=== PATIENT | male | born 1945 | race Caucasian/White ===

== ENCOUNTER 2016-10-08 11:32 | Inpatient (IN) | payer OTHER, MEDICARE ==
[~2016-10-08] VITALS: Ht 185.4 cm; Wt 137.7 kg
[~2016-10-08 11:32] MED LIST changes: -CARA1TAB6 PO; -CHOL1TAB PO; -DOCU1CAP39 PO; -FISH120014 PO; -FLUTI220I INH; -GLIP5TAB8 PO; -HYDR-3366 PO; -HYDR-3583 PO; -LYRI100C PO; -LYRI150C PO; -METF1000 PO; -METO-309 PO; -METO25TA3 PO; -MULT1TAB84 PO; -MULTTAB63 PO; -OMEP20TA PO; -PROT40TA PO; -SUCR1TAB PO; -TRAZ150T75 PO; -TRAZ50TA12 PO; -UMEC1AER INH; -desyrel PO
[2016-10-08] MEDS ORDERED: MULT1TAB84 PO (14:17)
[2016-10-08] MEDS ORDERED: METO25TA3 PO (14:17)
[2016-10-08] MEDS ORDERED: METF1000 PO (14:17)
[2016-10-08] MEDS ORDERED: FLUTI220I INH (14:17)
[2016-10-08] MEDS ORDERED: GLIP5TAB8 PO (14:17)
[2016-10-08] MEDS ORDERED: CARA1TAB6 PO (14:17)
[2016-10-08] MEDS ORDERED: TRAZ150T75 PO (14:17)
[2016-10-08] MEDS ORDERED: PROT40TA PO (14:17)
[2016-10-08] MEDS ORDERED: LYRI150C PO (14:17)
[2016-10-08] MEDS ORDERED: HYDR-3366 PO (15:54)
[2016-10-16] MEDS ORDERED: SODIUM CHLOR 0.9% 1000 ML INJ 1,000 ML IV SCH (06:30)
[2016-10-16] MEDS ORDERED: SODIUM CHLORID 0.9% 500 ML IV SCH (06:30)
[2016-10-16] MEDS ORDERED: VANCOMYCIN HCL 1000 MG ON-CALL/NS 250 ML IV SCH ×2 (06:30)
[2016-10-16] MEDS ORDERED: INSULIN HUMAN REGULAR 1,000 UNITS/10 ML VIAL SQ PRN (06:30)
[2016-10-16] MEDS ORDERED: METOPROLOL TARTRATE 25 MG TAB PO PRN (06:30)
[2016-10-16] MEDS: LACTATED RINGER'S 1000 ML IV SCH (06:45)
[2016-10-16] MEDS ORDERED: UMEC1AER INH (06:51)
[2016-10-16 06:53] VITALS: BP 146/89; PULSE 70; RESP 22; TEMP 97.5; O2SAT 97
[2016-10-16] MEDS ORDERED: BUPIVACAINE/EPINEPHRINE 0.5% 50 ML VIAL ONE (06:53)
[2016-10-16] MEDS ORDERED: VANCOMYCIN 500 MG VIAL ONE (06:53)
[2016-10-16] MEDS ORDERED: GELFOAM SIZE 100 ONE (06:53)
[2016-10-16] MEDS ORDERED: THROMBIN (TOPICAL) 5,000 UNIT VIAL ONE (06:53)
[2016-10-16] MEDS ORDERED: MIDAZOLAM HCL 2 MG/2 ML VIAL ONE (08:07)
[2016-10-16] MEDS ORDERED: FAMOTIDINE 20 MG/2 ML VIAL ONE (08:07)
[2016-10-16] MEDS ORDERED: ARTIFICIAL TEARS OPTH OINT 3.5 APPLIC/3.5 GM TUBO ONE (08:07)
[2016-10-16] MEDS ORDERED: ACETAMINOPHEN 1000 MG/100 ML VIAL IV ONE (08:07)
[2016-10-16] MEDS ORDERED: KETAMINE HCL 500 MG/5 ML VIAL ONE (08:08)
[2016-10-16] MEDS ORDERED: fentaNYL CITRATE 250 MCG/5 ML AMP ONE ×2 (08:08)
[2016-10-16] MEDS ORDERED: PROPOFOL 200 MG/20 ML AMP IV ONE (12:00)
[2016-10-16] MEDS ORDERED: PHENYLEPH/NS 1000 MCG/10 ML SYR IV ONE (12:00)
[2016-10-16] MEDS ORDERED: SODIUM CHLOR 0.9% 250 ML INJ 250 ML IV ONE (12:00)
[2016-10-16] MEDS ORDERED: SODIUM CHLORID 0.9% 500 ML INJ 500 ML IV ONE (12:00)
[2016-10-16] MEDS ORDERED: PHENYLEPHRINE HCL 10 MG/ML VIAL IV ONE (12:00)
[2016-10-16] MEDS ORDERED: ONDANSETRON HCL 4 MG/2 ML VIAL IV PUSH ONE (12:00)
[2016-10-16] MEDS ORDERED: LACTATED RINGER'S 1000 ML INJ 2,000 ML IV ONE (12:00)
[2016-10-16] MEDS ORDERED: ePHEDrine/NS 50 MG/5 ML SYR IV ONE (12:00)
[2016-10-16] MEDS ORDERED: VANCOMYCIN HCL 1000 MG VIAL OTHER ONE (13:00)
[2016-10-16] MEDS: NS + KCL 20 MEQ INJ 1,000 ML IV SCH (13:35)
--- NOTE | 2016-10-16 13:41 | PD.OP ---
Olvin Teran MD Operative Report Date of Surgery: Oct 16, 2016 Preoperative Diagnosis: Intractable back pain with neurogenic claudication and radiculopathy; T12-L1 and L1-L2 degenerative disc disease with the facet arthropathy and associated spinal stenosis; history of L3-S1 posterolateral fusion with pedicle screw fixation Postoperative Diagnosis: Same Procedure: T12, L1 and L2 posterolateral fusion; T12-L2 decompressive laminotomies with medial facetectomy; T12-L2 pedicle screw fixation; removal of previous L2 pedicle screw; microsurgical technique Anesthesia: Gen. endotracheal by Evette Bowers Surgeon: Diaz Youssef M.D. Rig Welder(s): Emilia Lockhart Operation and Findings: The procedure along with the risks and benefits involved were discussed with the patient including the option of nonsurgical management. He requested that we proceed with surgery and informed consent was obtained. Following initiation of a general endotracheal anesthesia patient a Cruz catheter placed on the sequential compression devices and was log rolled on a Jeffry table on chest rolls in the prone position and all pressure points adequately padded. The posterior thoracic lumbar was then shaved and prepped with alcohol along with ChloraPrep and sterilely draped with Ioban along with the usual sterile draping. Intraoperative fluoroscopy was used for level confirmation an incision in the midline made extending from that T12 to the L2 levels extending superior to the previous midline lumbar incision site after infiltrating the skin with 0.5% Marcaine with epinephrine solution. The incision was extended down through the fascia and then using the subperiosteal plane the muscle attachments spinous processes and lamina along with the facets were detached from the T12 to L2 levels bilaterally. Self-retaining retractor was used for exposure. Further dissection was undertaken using microtechnique with microscope magnification. The left T12, L1, and L2 lamina along with the medial portion of the facet the were resected with a drill bit and Kerrison along with the underlying ligamentum flavum to decompress the spinal canal which was significantly stenosed Epidural venous stasis achieved with bipolar cautery along with Gelfoam and thrombin. Subsequently pedicle screw fixation was undertaken using Boy[place] spine screws with the entry point ejection of the transverse process and facet at the T12 level as well as L1 and L2 levels on the left side. Patient had a previous TSRH pedicle screw system in place extending from L2 to the lumbosacral level. Noted to extend this construct superiorly the L2 pedicle screws had to be removed but was extensive scar tissue and Bone callus formation which made the removal of these pedicle screws very difficult. Consequently I cut the anum between the left L2 and L3 pedicle screw and the left L2 pedicle screw was then removed and replaced with a larger Boynton spine screw. AP and lateral fluoroscopy guidance was used to and subsequently tap and screw placement bilaterally extending from T12 to the L2 levels which were then connected with a anum and locked in place with caps. I then decorticated the posterior lateral remnants of the laminae and facet lumbar transverse processes on the right side extending from T12 to L2 levels with a drill bit for posterolateral fusion. The local autograft bone from the laminectomy along with demineralized bone matrix was then packed overlying the decorticated the posterior lateral elements extending from the T12 to the L2 level. The area was copiously irrigated with vancomycin solution. AP and lateral fluoroscopy confirmed good placement of the construct as well as advent of the spinal alignment. The muscle and fascia was then approximated using 2-0 Vicryl interrupted stitches and 3-0 Vicryl subcuticular interrupted stitches were also placed with final skin closure using coco. Sterile dressings were then applied and he was then log roll supine position and extubated and taken recovery room. There were no intraoperative complications and all sponge and needle count was correct at the end the procedure. Estimated blood loss about 130 cc. Intraoperative neurologic monitoring was also undertaken which remained stable throughout the surgery. Diaz Youssef MD Oct 16, 2016 13:41
[2016-10-16] MEDS ORDERED: CALCIUM GLUCONATE INJ 1 GM in SODIUM CHLORIDE 0.9% INJ 100 ML IV PRN (13:45)
[2016-10-16] MEDS ORDERED: ACETAMINOPHEN 325 MG TAB PO PRN (13:45)
[2016-10-16] MEDS ORDERED: CYCLOBENZAPRINE HCL 10 MG TAB PO PRN (13:45)
[2016-10-16] MEDS ORDERED: ONDANSETRON HCL 4 MG/2 ML VIAL IV PRN (13:45)
[2016-10-16] MEDS ORDERED: ACETAMINOPHEN/HYDROcodone 325 MG/10 MG TAB PO PRN (13:45)
[2016-10-16] MEDS ORDERED: RESP: ALBUTEROL 2.5 MG/3 ML NEB (PRN) NEB (13:45)
[2016-10-16] MEDS ORDERED: BISACODYL 10 MG SUPP PR PRN (13:45)
[2016-10-16] MEDS ORDERED: MAGNESIUM SULFATE INJ 2 GM in SODIUM CHLORIDE 0.9% INJ 100 ML IV PRN (13:45)
[2016-10-16] MEDS ORDERED: ALUMINUM/MAGNESIUM/SIMETH 30 ML CUP PO PRN (13:45)
[2016-10-16] MEDS ORDERED: PROMETHAZINE INJ 25 MG/ML VIAL IM PRN (13:45)
[2016-10-16] MEDS ORDERED: NALOXONE HCL 0.4 MG/ML AMP IV PRN (13:45)
[2016-10-16] MEDS ORDERED: DEXTROSE 50% IN WATER 50 ML VIAL(D50) IV PUSH PRN (13:45)
[2016-10-16] MEDS ORDERED: SODIUM CHLORIDE 0.9% FLUSH 5 ML FLUSH IVF PRN (13:45)
[2016-10-16] MEDS ORDERED: GLUCAGON 1 MG/ML VIAL OTHER PRN (13:45)
[2016-10-16] MEDS ORDERED: ZOLPIDEM TARTRATE 5 MG TAB PO PRN (13:45)
[2016-10-16] MEDS ORDERED: MENTHOL LOZENGE SUCK-ON PRN (13:45)
[2016-10-16] MEDS ORDERED: POTASSIUM CHLOR 20 MEQ PREMIX 100 ML IV PRN (13:45)
[2016-10-16] MEDS ORDERED: cloNIDine HCL 0.1 MG TAB PO PRN (13:45)
[2016-10-16] MEDS: PCA - TOTAL MG DILAUDID DELIVERED PER SHIFT OTHER SCH ×2 (14:00→21:10)
[2016-10-16 14:19] LABS: AUTOMATED NEUTROPHIL # 6.5 TH/MM3 (1.8-7.7); BASOPHIL % 0.6 % (0.0-2.0); EOSINOPHIL # 0.1 TH/MM3 (0-0.4); EOSINOPHIL % 1.2 % (0.0-4.0); HEMATOCRIT 36.6 % (39.0-51.0); HEMO FLAGS DIFF FINAL; LYMPH % 14.8 % (9.0-44.0); LYMPHOCYTE # 1.3 TH/MM3 (1.0-4.8); MEAN CELL VOLUME 92.1 FL (80.0-100.0); MEAN CORPUSCULAR HEMOGLOBIN 31.4 PG (27.0-34.0); MEAN CORPUSCULAR HGB CONC 34.1 % (32.0-36.0); MONO % 8.8 % (0.0-8.0); NEUT % 74.6 % (16.0-70.0); PLATELET COUNT 161 TH/MM3 (150-450); RED BLOOD COUNT 3.98 MIL/MM3 (4.50-5.90); RED CELL DISTRIBUTION WIDTH 13.4 % (11.6-17.2); WHITE BLOOD COUNT 8.7 TH/MM3 (4.0-11.0)
[2016-10-16] MEDS ORDERED: DO NOT ADM ANY ANTICOAGULANT DRUGS XX PRN (14:30)
[2016-10-16 14:44] LABS: BICARBONATE 25.7 MEQ/L (21.0-32.0); MAGNESIUM 1.5 MG/DL (1.5-2.5); POTASSIUM 3.7 MEQ/L (3.5-5.1)
--- NOTE | 2016-10-16 14:44 | PD.CONS ---
HPI Service [facility] Consult Requested By Neurosurgery Reason for Consult Medical management Primary Care Physician Olvin Teran MD Diagnoses: History of Present Illness 71-year-old male with a history of diabetes type 2, chronic back pain with had previous back fusion surgery was taken to the OR today and underwent a T12, L1, L2 laminectomies with pedicle screw fixation and posterolateral fusion. Patient was seen in PACU, denies any chest pain or shortness of breath. Vitals stable Review of Systems Other Other 12 systems reviewed and are negative except for the one mentioned in history of present illness Past Family Social History Allergies: Coded Allergies: Tramadol (Verified Allergy, Severe, ITCH AND PANIC ATTACKS, 10/16/16) Morphine (Verified Allergy, Mild, itching, 10/16/16) Past Medical History Chronic back pain Diabetes type 2 Hypertension Hyperlipidemia Fibromyalgia Past Surgical History Previous back fusion surgery s/p T12, L1, L2 laminectomies with pedicle screw fixation and posterolateral fusion 10/16/16 Family History Noncontributory Social History No report of tobacco, alcohol or illicit drug intake Physical Exam Vital Signs Vital Signs Date Time Temp Pulse Resp B/P Pulse Ox O2 Delivery O2 Flow Rate FiO2 10/16/16 06:53 97.5 70 22 146/89 97 Physical Exam GENERAL: This is a well-nourished, well-developed patient, in no apparent distress. SKIN: No rashes, ecchymoses or lesions. Cool and dry. HEAD: Atraumatic. Normocephalic. No temporal or scalp tenderness. EYES: Pupils equal round and reactive. Extraocular motions intact. No scleral icterus. No injection or drainage. ENT: Nose without bleeding, purulent drainage or septal hematoma. Throat without erythema, tonsillar hypertrophy or exudate. Uvula midline. Airway patent. NECK: Trachea midline. No JVD or lymphadenopathy. Supple, nontender, no meningeal signs. CARDIOVASCULAR: Regular rate and rhythm without murmurs, gallops, or rubs. RESPIRATORY: Clear to auscultation. Breath sounds equal bilaterally. No wheezes , rales, or rhonchi. GASTROINTESTINAL: Abdomen soft, non-tender, nondistended. No hepato-splenomegaly , or palpable masses. No guarding. MUSCULOSKELETAL: Extremities without clubbing, cyanosis, or edema. No joint tenderness, effusion, or edema noted. No calf tenderness. Negative Homans sign bilaterally. NEUROLOGICAL: Awake and alert. Cranial nerves II through XII intact. Motor and sensory grossly within normal limits. Five out of 5 muscle strength in all muscle groups. Normal speech. Laboratory Laboratory Tests Test 10/16/16 10/16/16 06:40 14:10 Blood Type A POSITIVE Antibody Screen NEGATIVE Blood Bank Comment White Blood Count 8.7 Red Blood Count 3.98 Hemoglobin 12.5 Hematocrit 36.6 Mean Corpuscular Volume 92.1 Mean Corpuscular Hemoglobin 31.4 Mean Corpuscular Hemoglobin 34.1 Concent Red Cell Distribution Width 13.4 Platelet Count 161 Mean Platelet Volume 9.4 Neutrophils (%) (Auto) 74.6 Lymphocytes (%) (Auto) 14.8 Monocytes (%) (Auto) 8.8 Eosinophils (%) (Auto) 1.2 Basophils (%) (Auto) 0.6 Neutrophils # (Auto) 6.5 Lymphocytes # (Auto) 1.3 Monocytes # (Auto) 0.8 Eosinophils # (Auto) 0.1 Basophils # (Auto) 0.0 CBC Comment DIFF FINAL Differential Comment Result Diagram: 10/16/16 1410 Assessment and Plan Assessment and Plan 71-year-old male with s/p T12, L1, L2 laminectomies with pedicle screw fixation and posterolateral fusion 10/16/16: Management per neurosurgery. Continue current postop care. PT consult to treat and eval. Pain management accordingly. Monitor for postop anemia. Diabetes type 2: Resume outpatient medication, start insulin sliding scale with fingerstick blood glucose monitoring. Hypertension: Resume outpatient medications including Cozaar, Lopressor and Norvasc. Hyperlipidemia: Resume statin GERD: Resume PPI Other chronic medical conditions: Resume outpatient medications DVT prophylaxis: Bilateral SCDs Code Status Full code Discussed Condition With Patient, PACU nurse Graham Moreno MD Oct 16, 2016 14:44
--- NOTE | 2016-10-16 14:48 | RADRPT ---
EXAM DATE/TIME: 10/16/2016 09:01 [facility] COMPARISON: CT LUMBAR SPINE W/O CONTRAST, July 22, 2016, 8:54. CT THORACIC SPINE W/O CONTRAST, July 22 16, 8:58. INDICATIONS : T12-L2 Laminectomy, T12-L2 fusion. MEDICAL HISTORY : Hypertension. Chronic obstructive pulmonary disease. Diabetes mellitus type II. CAD, GERD, [place]. SURGICAL HISTORY : Fusion, lumbar. ENCOUNTER: Initial ACUITY: 1 day PAIN SCORE: Non-responsive. LOCATION: Thoracolumbar spine FINDINGS: AP and lateral cone-down views of the thoracolumbar junction were obtained using a matrix camera and demonstrate a remote fusion at the L2-S1 level with bilateral pedicle screws and posterior fixation r ods. The patient is status post interval fusion at the T12-L2 level with left-sided pedicle screws an d posterior fixation anum. Degenerative disc changes are present at the L1-2 level with disc space galina rowing and hypertrophic change. CONCLUSION: 1. Status post interval fusion at the T12-L2 level. 2. Remote fusion in the upper and lower lumbar spine. Rui Gilbert MD on October 16, 2016 at 14:41 Board Certified Radiologist. This report was verified electronically.
[2016-10-16] MEDS: HYDROmorphone HCL PCA 6 MG/30 ML IV SCH ×2 (15:39→21:32)
[2016-10-16 16:00] VITALS: BP 133/69; PULSE 91; RESP 18; TEMP 95.4; O2SAT 94
[2016-10-16] MEDS: INSULIN NovoLIN REGULAR SUPPLEMENTAL SCALE SQ SCH ×2 (16:00→21:00)
[2016-10-16 17:05] VITALS: O2SAT 99
[2016-10-16 20:00] VITALS: BP 127/70; PULSE 96; RESP 16; TEMP 96.4; O2SAT 94
[2016-10-16] MEDS: diphenhydrAMINE HCL 25 MG CAP PO PRN (21:05)
[2016-10-16] MEDS: DOCUSATE SODIUM 100 MG CAP PO SCH (21:06)
[2016-10-16] MEDS: traZODone HCL 50 MG TAB PO SCH (21:06)
[2016-10-16] MEDS: SODIUM CHLORIDE 0.9% FLUSH 5 ML FLUSH IVF SCH (21:07)
[2016-10-16] MEDS: TOPIRAMATE 25 MG TAB PO SCH (21:07)
[2016-10-17] VITALS (7 sets, daily range): BP systolic 108–141; BP diastolic 58–82; PULSE 79–105; RESP 16–18; TEMP 95.8–97.6; O2SAT 93–96
[2016-10-17] MEDS: HYDROmorphone HCL PCA 6 MG/30 ML IV SCH ×2 (03:11→13:40)
[2016-10-17 05:51] LABS: AUTOMATED NEUTROPHIL # 10.6 TH/MM3 (1.8-7.7); BASOPHIL % 0.1 % (0.0-2.0); HEMATOCRIT 38.9 % (39.0-51.0); HEMO FLAGS DIFF FINAL; LYMPH % 5.3 % (9.0-44.0); LYMPHOCYTE # 0.7 TH/MM3 (1.0-4.8); MEAN CELL VOLUME 94.1 FL (80.0-100.0); MEAN CORPUSCULAR HEMOGLOBIN 31.2 PG (27.0-34.0); MEAN CORPUSCULAR HGB CONC 33.1 % (32.0-36.0); NEUT % 85.6 % (16.0-70.0); PLATELET COUNT 189 TH/MM3 (150-450); RED BLOOD COUNT 4.14 MIL/MM3 (4.50-5.90); RED CELL DISTRIBUTION WIDTH 13.2 % (11.6-17.2); WHITE BLOOD COUNT 12.4 TH/MM3 (4.0-11.0)
[2016-10-17 05:59] LABS: BICARBONATE 26.5 MEQ/L (21.0-32.0); POTASSIUM 4.2 MEQ/L (3.5-5.1)
[2016-10-17] MEDS: PCA - TOTAL MG DILAUDID DELIVERED PER SHIFT OTHER SCH ×3 (06:00→22:00)
[2016-10-17] MEDS: LACTATED RINGER'S 1000 ML IV SCH (06:30)
[2016-10-17] MEDS: NS + KCL 20 MEQ INJ 1,000 ML IV SCH (06:40)
[2016-10-17] MEDS: INSULIN NovoLIN REGULAR SUPPLEMENTAL SCALE SQ SCH ×4 (06:42→20:40)
[2016-10-17] MEDS: UMECLIDINIUM 62.5 MCG/VILANTEROL 25 MCG INHALER INH SCH (08:56)
[2016-10-17] MEDS: SODIUM CHLORIDE 0.9% FLUSH 5 ML FLUSH IVF SCH ×2 (08:56→20:39)
[2016-10-17] MEDS: MAGNESIUM HYDROXIDE SUSP 30 ML CUP PO PRN (08:57)
[2016-10-17] MEDS: PANTOPRAZOLE SOD 40 MG DELAYED RELEASE TAB PO SCH (08:57)
[2016-10-17] MEDS: PREGABALIN 75 MG CAP PO SCH (08:57)
[2016-10-17] MEDS: MULTIVITAMINS/MINERALS THERAPEUTIC TAB PO SCH (08:59)
[2016-10-17] MEDS: DOCUSATE SODIUM 100 MG CAP PO SCH ×2 (08:59→20:40)
[2016-10-17] MEDS: METOPROLOL TARTRATE 25 MG TAB PO SCH (09:00)
[2016-10-17] MEDS: TOPIRAMATE 25 MG TAB PO SCH ×2 (09:00→20:40)
[2016-10-17] MEDS: LOSARTAN 50 MG TAB PO SCH (09:00)
[2016-10-17] MEDS: amLODIPine BESYLATE 5 MG TAB PO SCH (09:00)
[2016-10-17] MEDS: PRAMIPEXOLE DIHYDROCHLORIDE 0.25 MG TAB PO SCH (09:01)
[2016-10-17] MEDS: PRAVASTATIN SOD 40 MG TAB PO SCH (09:01)
--- NOTE | 2016-10-17 10:24 | HHI.PR ---
Subjective Remarks Patient seen and examined Reports improvement of back pain Denies any chest pain or shortness of breath Currently afebrile Objective Vitals Vital Signs Date Time Temp Pulse Resp B/P Pulse Ox O2 Delivery O2 Flow Rate FiO2 10/17/16 08:52 Room Air 10/17/16 08:00 95.8 105 18 128/72 96 10/17/16 06:00 18 10/17/16 04:00 96.4 96 16 141/76 96 10/17/16 03:11 18 10/17/16 00:00 96.4 103 17 139/82 94 10/16/16 21:32 18 10/16/16 21:10 18 10/16/16 20:00 96.4 96 16 127/70 94 10/16/16 17:05 99 21 10/16/16 16:00 95.4 91 18 133/69 94 10/16/16 15:39 12 10/16/16 15:31 Nasal Cannula 3.00 10/16/16 15:15 98.1 96 12 125/66 97 Nasal Cannula 3 10/16/16 15:00 91 12 136/76 95 Nasal Cannula 3 10/16/16 14:45 92 12 143/75 97 Nasal Cannula 3 10/16/16 14:30 93 12 145/75 96 Nasal Cannula 3 10/16/16 14:15 98 12 125/74 97 Nasal Cannula 4 10/16/16 14:00 101 12 123/66 95 Nasal Cannula 4 10/16/16 13:52 98.1 96 12 124/66 92 Nasal Cannula 4 I/O 10/16/16 10/16/16 10/16/16 10/17/16 10/17/16 10/17/16 07:00 15:00 23:00 07:00 15:00 23:00 Intake Total 2560 ml 480 ml 360 ml Output Total 730 ml 1200 ml 650 ml Balance 1830 ml -720 ml -290 ml Intake Oral 60 ml 480 ml 360 ml Other 2500 ml Output Urine Total 600 ml 1200 ml 650 ml Estimated Blood Loss 130 ml # Bowel Movements 0 0 0 Result Diagram: 10/17/16 0441 10/17/16 0441 Imaging Last Impressions Thoracolumbar Spine 10/16/16 0000 Signed Impressions: Service Date/Time: September 09:01 - CONCLUSION: 1. Status post interval fusion at the T12-L2 level. 2. Remote fusion in the upper and lower lumbar spine. Rui Gilbert MD Objective Remarks GENERAL: NAD SKIN: Warm and dry. HEAD: Normocephalic. EYES: No scleral icterus. No injection or drainage. NECK: Supple, trachea midline. No JVD or lymphadenopathy. CARDIOVASCULAR: Regular rate and rhythm without murmurs, gallops, or rubs. RESPIRATORY: Breath sounds equal bilaterally. No accessory muscle use. GASTROINTESTINAL: Abdomen soft, non-tender, nondistended. MUSCULOSKELETAL: No cyanosis, or edema. BACK: Nontender without obvious deformity. Inc c/d/i A/P Assessment and Plan 71-year-old male with s/p T12, L1, L2 laminectomies with pedicle screw fixation and posterolateral fusion 10/16/16: Management per neurosurgery. Continue current postop care. PT to treat and eval. Pain management accordingly. Incentive spirometry at bedside Monitor for postop anemia. Diabetes type 2: Continue outpatient medication, on insulin sliding scale with fingerstick blood glucose monitoring. Hypertension: continue outpatient medications including Cozaar, Lopressor and Norvasc. Hyperlipidemia: on statin GERD: continue PPI Other chronic medical conditions: continue outpatient medications Leukocytosis: Stress reactive, continue to monitor DVT prophylaxis: Bilateral SCDs Graham Moreno MD Oct 17, 2016 10:24
--- NOTE | 2016-10-17 12:11 | HHI.NSPN ---
(Graham Pikcett) History Chief Complaint: Incisional pain (Graham Pickett) Interval History Pt underwent a T12, L1, and L2 posterolateral fusion, T12-L2 decompressive laminotomies with medical facetectomy; T12-L2 pedicle screw fixation; removal of previous L2 pedicle screw on 10/16/16. He is sitting up in a chair with TLSO brace on. He states his pain is controlled. He denies any radiculopathy in LEs. He has paresthesias in the toes bilaterally. He is using his CLIENT CARE SPECIALIST for pain control. (Graham Pickett) Review of Systems General: Negative for: fever, chills, insomnia Respiratory: Negative for: shortness of breath, cough, sputum Cardiovascular: Negative for: chest pain Gastrointestinal: Negative for: nausea, vomitting, diarrhea, constipation ( Graham Pickett) Exam Results Vital Signs Date Time Temp Pulse Resp B/P Pulse Ox O2 Delivery O2 Flow Rate FiO2 10/17/16 10:00 93 21 10/17/16 08:52 Room Air 10/17/16 08:00 95.8 105 18 128/72 10/16/16 15:31 3.00 Intake and Output 10/16/16 10/16/16 10/17/16 08:00 16:00 00:00 Intake Total 2560 ml 480 ml Output Total 730 ml 1200 ml Balance 1830 ml -720 ml (Graham Pickett) Physical Examination Resp: CTA bilaterally Heart: NSR no murmurs Abd: Soft positive bs Skin: No cyanosis or erythema in LEs Muscle: Moves LEs with good strength Neuro: Pt awake and alert. Follows commands well. Speech clear and appropriate. (Graham Pickett) Lab, Micro, Other Results Laboratory Tests Test 10/16/16 10/17/16 14:10 04:41 White Blood Count 8.7 TH/MM3 12.4 TH/MM3 Red Blood Count 3.98 MIL/MM3 4.14 MIL/MM3 Hemoglobin 12.5 GM/DL 12.9 GM/DL Hematocrit 36.6 % 38.9 % Mean Corpuscular Volume 92.1 FL 94.1 FL Mean Corpuscular Hemoglobin 31.4 PG 31.2 PG Mean Corpuscular Hemoglobin 34.1 % 33.1 % Concent Red Cell Distribution Width 13.4 % 13.2 % Platelet Count 161 TH/MM3 189 TH/MM3 Mean Platelet Volume 9.4 FL 10.1 FL Neutrophils (%) (Auto) 74.6 % 85.6 % Lymphocytes (%) (Auto) 14.8 % 5.3 % Monocytes (%) (Auto) 8.8 % 9.0 % Eosinophils (%) (Auto) 1.2 % 0.0 % Basophils (%) (Auto) 0.6 % 0.1 % Neutrophils # (Auto) 6.5 TH/MM3 10.6 TH/MM3 Lymphocytes # (Auto) 1.3 TH/MM3 0.7 TH/MM3 Monocytes # (Auto) 0.8 TH/MM3 1.1 TH/MM3 Eosinophils # (Auto) 0.1 TH/MM3 0.0 TH/MM3 Basophils # (Auto) 0.0 TH/MM3 0.0 TH/MM3 CBC Comment DIFF FINAL DIFF FINAL Differential Comment Sodium Level 143 MEQ/L 140 MEQ/L Potassium Level 3.7 MEQ/L 4.2 MEQ/L Chloride Level 109 MEQ/L 106 MEQ/L Carbon Dioxide Level 25.7 MEQ/L 26.5 MEQ/L Anion Gap 8 MEQ/L 8 MEQ/L Blood Urea Nitrogen 21 MG/DL 16 MG/DL Creatinine 0.93 MG/DL 0.94 MG/DL Estimat Glomerular Filtration 80 ML/MIN 79 ML/MIN Rate Random Glucose 103 MG/DL 155 MG/DL Calcium Level 8.3 MG/DL 8.5 MG/DL Magnesium Level 1.5 MG/DL 10/16/16 10/16/16 10/17/16 15:00 23:00 07:00 Intake Total 2560 ml 480 ml 360 ml Output Total 730 ml 1200 ml 650 ml Balance 1830 ml -720 ml -290 ml Intake Oral 60 ml 480 ml 360 ml Other 2500 ml Output Urine Total 600 ml 1200 ml 650 ml Estimated Blood Loss 130 ml # Bowel Movements 0 0 0 (Graham Pickett) Medical Decision Making Impression and Plan A: 71 y/o M s/p T12, L1, and L2 posterolateral fusion, T12-L2 decompressive laminotomies with medical facetectomy; T12-L2 pedicle screw fixation; removal of previous L2 pedicle screw. P: Continue to monitor Continue with pain control Continue with rehab efforts. (Graham Pickett) Attending Statement The exam, history, and the medical decision-making described in the above note were completed with the assistance of the mid-level provider. I reviewed and agree with the findings presented. I attest that I had a [id number] encounter with the patient on the same day, and personally performed and documented my assessment and findings in the medical record. Overall relates that his lower extremity symptoms and weakness has improved. Back pain controlled with CLIENT CARE SPECIALIST. We'll continue with CLIENT CARE SPECIALIST for another day and plan on intermediate home placement on Thursday. Discussed with the who is in agreement. (Diaz Youssef MD) Graham Pickett Oct 17, 2016 12:11 Diaz Youssef MD Oct 17, 2016 15:20
[2016-10-17] MEDS: diphenhydrAMINE HCL 25 MG CAP PO PRN (12:59)
[2016-10-17] MEDS: ACETAMINOPHEN/HYDROcodone 325 MG/10 MG TAB PO PRN (16:39)
[2016-10-17] MEDS: traZODone HCL 50 MG TAB PO SCH (20:40)
[2016-10-18] VITALS: BP 135/59; PULSE 108; RESP 24; TEMP 97.6; O2SAT 97
[2016-10-18 04:00] VITALS: BP 120/56; PULSE 98; RESP 20; TEMP 97.7; O2SAT 93
[2016-10-18] MEDS: PCA - TOTAL MG DILAUDID DELIVERED PER SHIFT OTHER SCH (06:00)
[2016-10-18] MEDS: LACTATED RINGER'S 1000 ML IV SCH (06:30)
[2016-10-18] MEDS: INSULIN NovoLIN REGULAR SUPPLEMENTAL SCALE SQ SCH ×4 (06:35→21:28)
[2016-10-18 08:00] VITALS: BP 133/61; PULSE 108; RESP 20; TEMP 98.2; O2SAT 97
--- NOTE | 2016-10-18 08:03 | HHI.PR ---
Subjective Remarks Patient seen and examined Stable and no acute event overnight States pain is controlled right now Afebrile Objective Vitals Vital Signs Date Time Temp Pulse Resp B/P Pulse Ox O2 Delivery O2 Flow Rate FiO2 10/18/16 06:00 20 10/18/16 04:00 97.7 98 20 120/56 93 10/18/16 00:00 97.6 108 24 135/59 97 10/17/16 22:00 18 10/17/16 20:20 95 Room Air 10/17/16 19:40 97.6 87 18 120/58 95 10/17/16 16:00 96.5 89 18 112/67 93 10/17/16 14:00 18 10/17/16 13:40 18 10/17/16 12:00 96.4 79 18 108/69 96 10/17/16 10:00 93 21 10/17/16 08:52 Room Air I/O 10/17/16 10/17/16 10/17/16 10/18/16 10/18/16 10/18/16 07:00 15:00 23:00 07:00 15:00 23:00 Intake Total 360 ml 1230 ml 468 ml 351 ml Output Total 650 ml 150 ml Balance -290 ml 1230 ml 318 ml 351 ml Intake Oral 360 ml 1230 ml 240 ml 240 ml IV Total 228 ml 111 ml Output Urine Total 650 ml 150 ml # Voids 2 3 # Bowel Movements 0 0 0 0 Result Diagram: 10/17/1644010/17/16440 Objective Remarks GENERAL: NAD and sleeping in a recliner chair SKIN: Warm and dry. HEAD: Normocephalic. EYES: No scleral icterus. No injection or drainage. NECK: Supple, trachea midline. No JVD or lymphadenopathy. CARDIOVASCULAR: Regular rate and rhythm without murmurs, gallops, or rubs. RESPIRATORY: Breath sounds equal bilaterally. No accessory muscle use. GASTROINTESTINAL: Abdomen soft, non-tender, nondistended. MUSCULOSKELETAL: No cyanosis, or edema. BACK: Nontender without obvious deformity. Inc c/d/i A/P Assessment and Plan 71-year-old male with s/p T12, L1, L2 laminectomies with pedicle screw fixation and posterolateral fusion 10/16/16: Management per neurosurgery. Continue current care. PT to treat and eval. Pain management accordingly. Incentive spirometry at bedside Monitor for postop anemia. Diabetes type 2: Continue outpatient medication, on insulin sliding scale with fingerstick blood glucose monitoring. Hypertension: continue outpatient medications including Cozaar, Lopressor and Norvasc. Hyperlipidemia: on statin GERD: continue PPI Other chronic medical conditions: continue outpatient medications Leukocytosis: Stress reactive, continue to monitor DVT prophylaxis: Bilateral SCDs Graham Moreno MD Oct 18, 2016 08:03
[2016-10-18] MEDS: UMECLIDINIUM 62.5 MCG/VILANTEROL 25 MCG INHALER INH SCH (09:00)
[2016-10-18] MEDS: PREGABALIN 75 MG CAP PO SCH (10:05)
[2016-10-18] MEDS: MULTIVITAMINS/MINERALS THERAPEUTIC TAB PO SCH (10:06)
[2016-10-18] MEDS: PRAMIPEXOLE DIHYDROCHLORIDE 0.25 MG TAB PO SCH (10:06)
[2016-10-18] MEDS: PANTOPRAZOLE SOD 40 MG DELAYED RELEASE TAB PO SCH (10:06)
[2016-10-18] MEDS: DOCUSATE SODIUM 100 MG CAP PO SCH ×2 (10:06→21:18)
[2016-10-18] MEDS: ENOXAPARIN SODIUM 30 MG/0.3 ML SYRINGE SQ SCH ×2 (10:06→21:19)
[2016-10-18] MEDS: TOPIRAMATE 25 MG TAB PO SCH ×2 (10:06→21:18)
[2016-10-18] MEDS: METOPROLOL TARTRATE 25 MG TAB PO SCH (10:06)
[2016-10-18] MEDS: PRAVASTATIN SOD 40 MG TAB PO SCH (10:06)
[2016-10-18] MEDS: LOSARTAN 50 MG TAB PO SCH (10:06)
[2016-10-18] MEDS: SODIUM CHLORIDE 0.9% FLUSH 5 ML FLUSH IVF SCH ×2 (10:07→21:18)
[2016-10-18] MEDS: amLODIPine BESYLATE 5 MG TAB PO SCH (10:07)
[2016-10-18] MEDS: ACETAMINOPHEN/HYDROcodone 325 MG/10 MG TAB PO PRN ×3 (10:13→21:18)
[2016-10-18 12:00] VITALS: BP 113/55; PULSE 88; RESP 18; TEMP 97.6; O2SAT 97
--- NOTE | 2016-10-18 12:15 | HHI.NSPN ---
History Chief Complaint: none Interval History POD 2 after T12 to L2 fusion, alert and sitting in the chair. His brace was readjusted. He seems comfortable Review of Systems General: Negative for: fever, chills, insomnia Respiratory: Negative for: shortness of breath, cough, sputum Cardiovascular: Negative for: chest pain, palpitations, orthopnea Exam Results Vital Signs Date Time Temp Pulse Resp B/P Pulse Ox O2 Delivery O2 Flow Rate FiO2 10/18/16 08:00 98.2 108 20 133/61 97 10/17/16 20:20 Room Air 10/17/16 10:00 21 10/16/16 15:31 3.00 Intake and Output 10/17/16 10/17/16 10/18/16 08:00 16:00 00:00 Intake Total 360 ml 1230 ml 468 ml Output Total 650 ml 150 ml Balance -290 ml 1230 ml 318 ml Physical Examination Resp: CTA bilaterally Heart: NSR no murmurs Abd: Soft positive bs Skin: No cyanosis or erythema in LEs Muscle: Moves LEs with good strength bilaterally Neuro: Pt awake and alert. Follows commands well. Speech clear and appropriate. Wound clean and dressed, dry Medical Decision Making Impression and Plan Stable after lumbar fusion, pain is managed, bowel program discussed, ready for rehab. Total Minutes: 10 Spenser Petit Oct 18, 2016 12:15
[2016-10-18 16:00] VITALS: BP 118/77; PULSE 72; RESP 16; TEMP 97.4; O2SAT 94
[2016-10-18] MEDS: MAGNESIUM HYDROXIDE SUSP 30 ML CUP PO PRN (16:41)
[2016-10-18] MEDS: POLYETHYLENE GLYCOL 17 GM PKG PO PRN (16:41)
[2016-10-18 20:00] VITALS: BP 130/63; PULSE 104; RESP 18; TEMP 98.8; O2SAT 97
[2016-10-18] MEDS: traZODone HCL 50 MG TAB PO SCH (21:18)
[2016-10-19] VITALS: BP 124/62; PULSE 78; RESP 18; TEMP 99.6; O2SAT 93
[2016-10-19 04:00] VITALS: BP 135/64; PULSE 109; RESP 20; TEMP 98.8; O2SAT 94
[2016-10-19] MEDS: ACETAMINOPHEN/HYDROcodone 325 MG/10 MG TAB PO PRN ×3 (05:51→16:42)
[2016-10-19] MEDS: INSULIN NovoLIN REGULAR SUPPLEMENTAL SCALE SQ SCH ×3 (05:59→16:42)
[2016-10-19 08:00] VITALS: BP 145/66; PULSE 97; RESP 18; TEMP 98.2; O2SAT 98
[2016-10-19] MEDS: DOCUSATE SODIUM 100 MG CAP PO SCH (08:32)
[2016-10-19] MEDS: PANTOPRAZOLE SOD 40 MG DELAYED RELEASE TAB PO SCH (08:32)
[2016-10-19] MEDS: PRAMIPEXOLE DIHYDROCHLORIDE 0.25 MG TAB PO SCH (08:32)
[2016-10-19] MEDS: PREGABALIN 75 MG CAP PO SCH (08:32)
[2016-10-19] MEDS: MULTIVITAMINS/MINERALS THERAPEUTIC TAB PO SCH (08:32)
[2016-10-19] MEDS: amLODIPine BESYLATE 5 MG TAB PO SCH (08:33)
[2016-10-19] MEDS: METOPROLOL TARTRATE 25 MG TAB PO SCH (08:33)
[2016-10-19] MEDS: PRAVASTATIN SOD 40 MG TAB PO SCH (08:33)
[2016-10-19] MEDS: LOSARTAN 50 MG TAB PO SCH (08:33)
[2016-10-19] MEDS: TOPIRAMATE 25 MG TAB PO SCH (08:33)
[2016-10-19] MEDS: SODIUM CHLORIDE 0.9% FLUSH 5 ML FLUSH IVF SCH (08:37)
[2016-10-19] MEDS: UMECLIDINIUM 62.5 MCG/VILANTEROL 25 MCG INHALER INH SCH (08:37)
[2016-10-19] MEDS: ENOXAPARIN SODIUM 30 MG/0.3 ML SYRINGE SQ SCH (10:58)
--- NOTE | 2016-10-19 10:58 | HHI.PR ---
Subjective Remarks Patient seen and examined Back pain currently controlled Complains of pain which is mostly localized to his nose area Objective Vitals Vital Signs Date Time Temp Pulse Resp B/P Pulse Ox O2 Delivery O2 Flow Rate FiO2 10/19/16 04:00 98.8 109 20 135/64 94 10/19/16 00:00 99.6 78 18 124/62 93 10/18/16 20:00 98.8 104 18 130/63 97 10/18/16 16:00 97.4 72 16 118/77 94 10/18/16 12:00 97.6 88 18 113/55 97 I/O 10/18/16 10/18/16 10/18/16 10/19/16 10/19/16 10/19/16 07:00 15:00 23:00 07:00 15:00 23:00 Intake Total 351 ml 240 ml 240 ml Output Total 25 ml Balance 351 ml 215 ml 240 ml Intake Oral 240 ml 240 ml 240 ml IV Total 111 ml Output Urine Total 25 ml # Voids 3 2 2 2 # Bowel Movements 0 1 0 0 Result Diagram: 10/17/1644010/17/16 0441 Objective Remarks GENERAL: NAD and sleeping in a recliner chair SKIN: Warm and dry. HEAD: Normocephalic. EYES: No scleral icterus. No injection or drainage. NECK: Supple, trachea midline. No JVD or lymphadenopathy. CARDIOVASCULAR: Regular rate and rhythm without murmurs, gallops, or rubs. RESPIRATORY: Breath sounds equal bilaterally. No accessory muscle use. GASTROINTESTINAL: Abdomen soft, non-tender, nondistended. MUSCULOSKELETAL: No cyanosis, or edema. BACK: Nontender without obvious deformity. Inc c/d/i A/P Assessment and Plan 71-year-old male with s/p T12, L1, L2 laminectomies with pedicle screw fixation and posterolateral fusion 10/16/16: Management per neurosurgery. Continue current care. PT to treat and eval. Pain management accordingly. Incentive spirometry at bedside .continue back brace Diabetes type 2: Continue outpatient medication, on insulin sliding scale with fingerstick blood glucose monitoring. Hypertension: continue outpatient medications including Cozaar, Lopressor and Norvasc. Hyperlipidemia: on statin GERD: continue PPI Pruritus: Okay of calamine lotion Other chronic medical conditions: continue outpatient medications Leukocytosis: Stress reactive, continue to monitor DVT prophylaxis: Bilateral SCDs Pontey,Graham MD Oct 19, 2016 10:58
[2016-10-19] MEDS ORDERED: CALAMINE LOTION 180 APPLIC/180 ML BTL TOPICAL PRN (11:00)
[2016-10-19] MEDS ORDERED: DOCU1CAP39 PO (11:02)
[2016-10-19] MEDS ORDERED: HYDR-3583 PO (11:02)
[2016-10-19] MEDS ORDERED: TRAZ50TA12 PO (11:02)
[2016-10-19] MEDS: MAGNESIUM HYDROXIDE SUSP 30 ML CUP PO PRN (11:09)
[2016-10-19] MEDS: POLYETHYLENE GLYCOL 17 GM PKG PO PRN (11:09)
[2016-10-19 12:00] VITALS: BP 121/62; PULSE 89; RESP 18; TEMP 98.1; O2SAT 99
[2016-10-19] MEDS ORDERED: SOD PHOSPHATE/SOD BIPHOSPHATE (ADULT) ENEMA 133ML PR ONE (12:15)
[2016-11-27] MEDS ORDERED: LYRI150C PO (15:51)
--- NOTE | 2016-12-05 12:53 | HHI.DS ---
Discharge Summary Admission Date Oct 16, 2016 at 05:56 Discharge Date: Oct 19, 2016 Admitting Diagnosis (1) Low back pain Diagnosis: Principal ICD Code: M54.5 (2) Postlaminectomy syndrome, lumbar Diagnosis: Principal ICD Code: M96.1 (3) Degenerative disc disease, lumbar Diagnosis: Principal ICD Code: M51.36 (4) Facet arthropathy, lumbar Diagnosis: Principal ICD Code: M12.88 (5) Lumbar stenosis with neurogenic claudication Diagnosis: Principal ICD Code: M48.06 (6) Degenerative disc disease, thoracic Diagnosis: Secondary ICD Code: M51.34 Procedures T12, L1, and L2 posterolateral fusion; T12-L2 decompressive laminotomies with medical facetectomy; T12-L2 pedicle screw fixation; removal of previous L2 pedicle screw by Dr. Youssef on 10/16/16. Brief History Pt is a 71 y/o M who presented to our office for an evaluation of a thoracolumbar area pain radiating into the right side of his lower rib and upper abdomen for a year progressively getting worse. he also complains of right anterior thigh pain to the knee but not past it. He has left posterior leg pain to the ankle intermittently over the last 3 years progressively worse and now constant over the last 3 months. He describes this pain as being sharp. He states his left foot is numb on the top and bottom and extends up the back of the calf. He has a left foot drop for the last year. He states he has had surgery on his back in 2004 in [place]. He states after surgery the strength improved but he has noticed intermittent weakness in the left foot and left foot drop for the last year. He states he occasionally falls. He has not had any recent PT. He states he can't walk for more than 200 yards secondary to the pain and weakness even with the use of a cane. He is attending pain management but states his last treatment was in January and was helping but only for a few weeks. He denies any bowel or bladder incontinence but states he at times has difficulty urinating and has a lot of dribbling related to when he has significant back pain He states because he dribble a lot he has to go frequently. he has had a thoracic spinal cord stimulator placed by Dr. Alfonso Mathew in 2012 and he also recently recommended that he under a T10 to L3 fusion and he has previous history of L3-S1 fusion with instrumentation the last surgery was 11 years ago in [place]. Imaging CT myelogram of the thoracic and lumbar spine from 07/22/16 was reviewed with the patient. He has significant T12-L1 stenosis from disc protrusion and facet arthropathy as well as moderate L1-L2 stenosis. There is extensive degenerative disc disease at both levels with a grade I L1/L2 spondylolisthesis and vacuum disc phenomena. He has a L3 to S1 bilateral pedicle screw in place with posterolateral fusion and interbody fusion at L3/L4, L4/L5 and L5/S1 levels. There is a disc protrusion at T6/T7, T7/T8, T8/T9 with mild to moderate stenosis. Hospital Course Pt underwent the above noted procedure by Dr. Youssef. There was no intraoperative complications. Postoperatively pt was admitted to the med/surg floor. PT was consulted. Pts pain was controlled with a REAL ESTATE CLOSING COORDINATOR. Hospitalist was consulted for assistance with medical management. His activity was increased. Cruz removed. REAL ESTATE CLOSING COORDINATOR discontinued. He was discharged home in stable condition. Pt Condition on Discharge: Stable Discharge Disposition: Discharge Home Discharge Instructions DIET: Follow Instructions for: Diabetic Diet ACTIVITIES You can perform: Shower Only-No Bath Activities to Avoid: Lifting/Bending, Prolonged Standing, Strenuous Activity, Bathing, Driving Follow up Referrals: Neurosurgery - 1 Week @ Neurosurgical - Dr Youssef PCP Follow-up - 2-3 Days New Medications: Docusate Sodium (Dok) 100 Mg Cap 100 MG PO BID Bowel Management #20 CAP Hydrocodone-Acetaminophen (Hydrocodone-Acetaminophen) 10-325 mg Tab 1 TAB PO Q4H PRN PAIN SCALE 1 TO 5 #20 TAB Trazodone (Trazodone) 50 Mg Tab 75 MG PO HS Provide Good Sleep #10 TAB Continued Medications: Amlodipine (Norvasc) 2.5 Mg Tab 2.5 MG PO DAILY Blood Pressure Management #30 Ref 0 TAB Glipizide (Glipizide) 5 Mg Tab 7.5 MG PO DAILY Take 30 minutes before a meal Blood Sugar Management #30 Ref 0 TAB Losartan (Losartan) 100 Mg Tab 100 MG PO DAILY Blood Pressure Management #30 Ref 0 TAB Metformin (Metformin) 1,000 Mg Tab 500 MG PO AC LUNCH With a meal Blood Sugar Management #30 Ref 0 TAB Metformin ER (Metformin ER) 1,000 Mg Tangela 1000 MG PO BID Blood Sugar Management #30 Ref 0 TAB Metoprolol Tartrate (Metoprolol Tartrate) 25 Mg Tab 25 MG PO DAILY #30 Ref 0 TAB Multiple Vitamins W/ Minerals (Multivitamin Adults) 1 Tab 1 TAB PO DAILY Nutritional Supplement Ref 0 TAB Pantoprazole (Protonix) 40 Mg Tab 40 MG PO DAILY Reflux #30 Ref 0 TAB Pramipexole (Mirapex) 0.25 Mg Tab 0.25 MG PO DAILY Parkinson Disease Mgmt #30 Ref 0 TAB Pravastatin (Pravastatin) 20 Mg Tab 40 MG PO DAILY Cholesterol Management #30 Ref 0 TAB Topiramate (Topamax) 25 Mg Tab 25 MG PO BID Control Seizures #60 Ref 0 TAB Umeclidinium-Vilanterol Inh (Anoro Ellipta Inh) 62.5-25 Mcg/Act Aero 1 PUFF INH DAILY COPD #1 Ref 0 INHALER Discontinued Medications: Hydrocodone-Acetaminophen ([place]) 10-325 Mg Tab 1 TAB PO Q6H PRN PAIN #90 Ref 0 TAB Trazodone (Trazodone) 150 Mg Tab 75 MG PO HS Control Depression #30 Ref 0 TAB Graham Pickett Dec 05, 2016 12:53
== END 2016-10-19 23:00 | disposition home or self-care (01) | DRG 460 ==
LOC: HSDI 10-16 05:56 → N06B 10-16 15:30 → N06A 10-17 17:24
PROVIDERS: ADMIT Neurological Surgery; ATTEND Neurological Surgery
PROC: 0SG0071 Fusion of Lumbar Vertebral Joint with Autologous Tissue Substitute, Posterior Approach, Posterior Column, Open Approach (ICD-10-PCS; 2016-10-16)
PROC: 0SP004Z Removal of Internal Fixation Device from Lumbar Vertebral Joint, Open Approach (ICD-10-PCS; 2016-10-16)
PROC: 0RPA04Z Removal of Internal Fixation Device from Thoracolumbar Vertebral Joint, Open Approach (ICD-10-PCS; 2016-10-16)
PROC: 0RGA071 Fusion of Thoracolumbar Vertebral Joint with Autologous Tissue Substitute, Posterior Approach, Posterior Column, Open Approach (ICD-10-PCS; principal; 2016-10-16 08:16)
DX: M51.36 Other intervertebral disc degeneration, lumbar region (principal); E11.9 Type 2 diabetes mellitus without complications; J44.9 Chronic obstructive pulmonary disease, unspecified; Z68.41 Body mass index [BMI] 40.0-44.9, adult; I10 Essential (primary) hypertension; D72.829 Elevated white blood cell count, unspecified; M48.05 Spinal stenosis, thoracolumbar region; M51.26 Other intervertebral disc displacement, lumbar region; M48.06 Spinal stenosis, lumbar region; M51.16 Intervertebral disc disorders with radiculopathy, lumbar region; M51.15 Intervertebral disc disorders with radiculopathy, thoracolumbar region; M46.96 Unspecified inflammatory spondylopathy, lumbar region; M46.95 Unspecified inflammatory spondylopathy, thoracolumbar region; E78.5 Hyperlipidemia, unspecified; E66.9 Obesity, unspecified; I25.10 Atherosclerotic heart disease of native coronary artery without angina pectoris; G47.30 Sleep apnea, unspecified; G89.4 Chronic pain syndrome; J62.8 Pneumoconiosis due to other dust containing silica; I87.2 Venous insufficiency (chronic) (peripheral); N40.0 Benign prostatic hyperplasia without lower urinary tract symptoms; K21.9 Gastro-esophageal reflux disease without esophagitis; M79.7 Fibromyalgia; L29.9 Pruritus, unspecified; Z72.0 Tobacco use; Z79.84 Long term (current) use of oral hypoglycemic drugs; Z88.5 Allergy status to narcotic agent; Z98.1 Arthrodesis status
CPT/HCPCS: 72070; 76000; 80048; 82948; 83735; 85025; 86850; 86900; 86901; 94150; C1713; J0131; J0690; J1170; J1650; J2250; J2370; J2405; J3010; J3370; J3480; J7040; J7050; J7120; L0200; L0484

== ENCOUNTER → 2016-10-08 | Outpatient (CLI) | payer OTHER ==
[~2016-10-08] MED LIST: CARA1TAB6 PO; CELE200C PO; CHOL1TAB PO; DOCU1CAP39 PO; FISH120014 PO; FLUTI220I INH; GLIP5TAB8 PO; HYDR-3366 PO; HYDR-3583 PO; LOSA100T PO; LYRI100C PO; LYRI150C PO; METF-382 PO; METF1000 PO; METO-309 PO; METO25TA3 PO; MIRA0.25 PO; MULT1TAB84 PO; MULTTAB63 PO; NORT50CA PO; NORV2.5T PO; OMEP20TA PO; PRAV20TA2 PO; PROT40TA PO; SUCR1TAB PO; TOPA25TA8 PO; TRAZ150T75 PO; TRAZ50TA12 PO; UMEC1AER INH; desyrel PO
== END ==
LOC: CPRE 11:27
PROVIDERS: ATTEND Neurological Surgery
DX: Z01.818 Encounter for other preprocedural examination (principal)

== ENCOUNTER 2017-11-17 03:22 | Emergency (ER) | payer OTHER ==
[~2017-11-17 03:22] MED LIST changes: -CELE200C PO; +DOCU1CAP39 PO; +GLIP5TAB8 PO; +HYDR-3583 PO; +LYRI150C PO; +METF1000 PO; +METO25TA3 PO; +MULT1TAB84 PO; -NORT50CA PO; +PROT40TA PO; -TOPA25TA8 PO; +TOPI25 PO; +TRAZ50TA12 PO; +UMEC1AER INH
[2017-11-17] MEDS ORDERED: SODIUM BICARBONATE 8.4% INJ 50 MEQ/50 ML SYR IV ONE (03:23)
[2017-11-17] MEDS ORDERED: EPINEPHrine HCL (1:10,000) 1 MG/10 ML SYRINGE IV ONE (03:23)
--- NOTE | 2017-11-17 03:58 | PD ---
HPI Chief Complaint: cardiac arrest Time Seen by Provider: 03:47 Travel History International Travel<30 days: No Contact w/Intl Traveler<30days: No Traveled to known affect area: No History of Present Illness HPI 72-year-old male presents to the emergency department by EMS transport from home where he was witnessed to collapse after complaining of shortness of breath without known trauma. reportedly witnessed the event. Patient recently underwent penile implant placement. Patient is on no reported blood thinning agents reportedly. Patient has history of hypertension dyslipidemia diabetes and COPD and is a non-smoker. Patient was found in asystole on director chemistry per EMS report found unresponsive pulseless and without spontaneous respirations or heart sounds to auscultation. Patient was immediately placed on director chemistry and identified to be in asystole, IO access obtained, patient given IV fluids, and epinephrine. Shortly after administration of epinephrine patient went into an agonal PEA. According to paramedics prior to arrival to the emergency department patient was unable to be intubated and Combitube was placed with good bilateral breath sounds and no gastric sounds. Patient in the field received epinephrine 6 doses, bicarb 1 dose, calcium 1 amp, 2 mg of Narcan, IV fluids, and blood sugar was 160. Upon arrival to the emergency department patient was in PEA by director chemistry patient was unresponsive no spontaneous respirations no heart sounds and no pulses; breath sounds to auscultation only with Combi tube in place and Ambu assisted ventilations. Compressions were resumed; additional dose of epinephrine was administered and patient was transferred from EMS bed to ED stretcher. Please refer to code summary. PFSH Past Medical History Narrative Medical Hypertension COPD CAD diabetes dyslipidemia no tobacco use; recent penile implant laminectomy; nursing notes reviewed Arthritis: Yes (degenerative) Asthma: No Cancer: No Cardiac Catheterization: No Cardiovascular Problems: Yes (extra heart beat) High Cholesterol: Yes Chest Pain: Yes Congestive Heart Failure: No COPD: Yes Cerebrovascular Accident: No Coronary Artery Disease: Yes Diabetes: Yes Diminished Hearing: No Endocrine: Yes Fibromyalgia: Yes Gastrointestinal Disorders: Yes (GERD,ULCER OF ESOHPAGUS) GERD: No Genitourinary: Yes (FREQUENCY) Headaches: Yes Hepatitis: No Hiatal Hernia: Yes ("functional hearna) Hypertension: Yes Immune Disorder: No (FIBROMYALGIA) Musculoskeletal: No Neurologic: Yes (NEUROPATHY BILATERAL FEET) Psychiatric: Yes (ANXIETY AND DEPRESSION ) Reproductive: Yes (sterilized) Respiratory: Yes (COPD; SLEEP APNEA (DOES NOT USE CPAP)) Immunizations Current: No Migraines: Yes Sleep Apnea: Yes Thyroid Disease: No Ulcer: No Past Surgical History Abdominal Surgery: Yes (CALCIUM DEPOSIT REMOVAL) AICD: No Body Medical Devices: TITANIUM RODS, SCREWS IN BACK; SPINAL STIMULATOR IN BACK Cardiac Surgery: No Coronary Artery Bypass Graft: No Ear Surgery: No Endocrine Surgery: No Eye Surgery: Yes ( orbital fx left eye) Genitourinary Surgery: Yes (sterilization) Gynecologic Surgery: No Joint Replacement: No Oral Surgery: Yes (TONISILLECTOMY) Pacemaker: No Thoracic Surgery: No Tonsillectomy: Yes Other Surgery: Yes (SPINAL FUSION L2-L5,S1, SPINAL CORD STIMULATOR) Social History Alcohol Use: Yes (1XWEEK) Tobacco Use: No (OCCASIONA CIGAR) Substance Use: No Allergies-Medications (Allergen,Severity, Reaction): Coded Allergies: tramadol (Unverified Allergy, Severe, ITCH AND PANIC ATTACKS, 05/12/17) morphine (Unverified Allergy, Mild, itching, 05/12/17) Reported Meds & Prescriptions Reported Meds & Active Scripts Active Lyrica (Pregabalin) 150 Mg Cap 150 Mg PO DAILY Dok (Docusate Sodium) 100 Mg Cap 100 Mg PO BID Hydrocodone-Acetaminophen 10-325 mg Tab 1 Tab PO Q4H PRN Trazodone (Trazodone HCl) 50 Mg Tab 75 Mg PO HS Reported Anoro Ellipta Inh (Umeclidinium/Vilanterol) 62.5-25 Mcg/Act Aero 1 Puff INH DAILY Glipizide 5 Mg Tab 7.5 Mg PO DAILY Take 30 minutes before a meal Multivitamin Adults (Multiple Vitamins W/ Minerals) 1 Tab 1 Tab PO DAILY Protonix (Pantoprazole Sodium) 40 Mg Tab 40 Mg PO DAILY Metoprolol Tartrate 25 Mg Tab 25 Mg PO DAILY Metformin (Metformin HCl) 1,000 Mg Tab 500 Mg PO AC LUNCH With a meal Topamax (Topiramate) 25 Mg Tab 25 Mg PO BID Pravastatin 20 Mg Tab 40 Mg PO DAILY Mirapex (Pramipexole Dihydrochloride) 0.25 Mg Tab 0.25 Mg PO DAILY Metformin ER (Metformin HCl) 1,000 Mg Tangela 1,000 Mg PO BID Losartan (Losartan Potassium) 100 Mg Tab 100 Mg PO DAILY Norvasc (Amlodipine Besylate) 2.5 Mg Tab 2.5 Mg PO DAILY Review of Systems ROS Limitations: Clinical Condition, Unresponsive, Other: () Except as stated in HPI: all other systems reviewed are Neg Respiratory: Positive: Shortness of Breath Physical Exam Narrative GENERAL: Clinically morbidly obese male unresponsive without spontaneous respirations no heart sounds to auscultation no palpable pulse to palpation at the carotid and femoral arteries; GCS 3; femoral pulse palpable with compressions and bilateral breath sounds auscultated with ambu assisted ventilations Via Combitube without gastric sounds SKIN: Cool and dry. Groin ecchymosis without open or draining wounds. HEAD: Normocephalic. EYES: No scleral icterus. No injection or drainage. Pupils round not reactive to light NECK: Supple, trachea midline. No JVD or lymphadenopathy. CARDIOVASCULAR: No heart sounds to auscultation; no spontaneous palpable carotid , radial, or femoral pulses. RESPIRATORY: Breath sounds equal bilaterally only with assisted ventilation. GASTROINTESTINAL: Abdomen soft, non-tender, nondistended. MUSCULOSKELETAL: No cyanosis, or edema. BACK: Nontender without obvious deformity. No CVA tenderness. MDM Medical Decision Making Medical Screen Exam Complete: Yes Emergency Medical Condition: Yes Medical Record Reviewed: Yes Differential Diagnosis Arrhythmia, myocardial infarction, saddle pulmonary embolism; also to consider aortic dissection aortic aneurysm rupture Narrative Course 72-year-old male with sudden cardiopulmonary arrest after complaint of shortness of breath after recent surgical procedure with history of diabetes COPD hypertension and dyslipidemia at high risk for saddle pulmonary embolism and/or myocardial infarction as well as arrhythmia unresponsive to multiple rounds of epinephrine bicarb IV fluids and calcium concerning for saddle embolism patient administered TPA patient remained in PEA and deteriorated to asystole at bedside and patient was pronounced at 3:43 AM after unsuccessful resuscitative measures. Call placed to patient's primary care provider. Diagnosis Primary Impression: Cardiopulmonary arrest Disposition: 20 Condition: Winnie Small MD Nov 17, 2017 03:58
== END 2017-11-17 06:19 | disposition expired ==
LOC: PHED 03:22
DX: I46.9 Cardiac arrest, cause unspecified (principal); I10 Essential (primary) hypertension; E11.9 Type 2 diabetes mellitus without complications; J44.9 Chronic obstructive pulmonary disease, unspecified; E78.5 Hyperlipidemia, unspecified; E66.01 Morbid (severe) obesity due to excess calories; Z98.890 Other specified postprocedural states; Z79.84 Long term (current) use of oral hypoglycemic drugs; Z72.0 Tobacco use
CPT/HCPCS: 92950; J0171